=== PATIENT | male | born 1990 | race African-American/Black ===

== ENCOUNTER → 2023-04-30 08:50 | Outpatient (REF) | payer OTHER, SELFPAY | LOC: RAD 08:50 | PROVIDERS: ATTENDING PHYSICIAN Internal Medicine Gastroenterology; FAMILY PHYSICIAN Family Medicine | DX: D50.0 Iron deficiency anemia secondary to blood loss (chronic) (principal); K59.09 Other constipation | CPT/HCPCS: 74280 ==

== ENCOUNTER → 2023-08-11 09:50 | Outpatient (REF) | payer OTHER, SELFPAY | LOC: RAD 09:50 | PROVIDERS: ATTENDING PHYSICIAN Urology; FAMILY PHYSICIAN Family Medicine | DX: N39.42 Incontinence without sensory awareness (principal); E29.1 Testicular hypofunction | CPT/HCPCS: 76770; 76870; 93976 ==

== ENCOUNTER → 2023-09-01 13:38 | Outpatient (REF) | payer OTHER, SELFPAY | LOC: HWRAD 13:38 | PROVIDERS: ATTENDING PHYSICIAN Urology; FAMILY PHYSICIAN Family Medicine | DX: N20.0 Calculus of kidney (principal) | CPT/HCPCS: 74018; 74176 ==

== ENCOUNTER → 2024-03-31 10:27 | Outpatient (REF) | payer OTHER, SELFPAY | LOC: HWRAD 10:27 | PROVIDERS: ATTENDING PHYSICIAN Urology; FAMILY PHYSICIAN Family Medicine | DX: N20.0 Calculus of kidney (principal) | CPT/HCPCS: 74018 ==

== ENCOUNTER 2024-05-15 22:11 | Inpatient (IN) | payer OTHER, SELFPAY ==
[2024-05-15] VITALS (9 sets, daily range): BP systolic 118–136; BP diastolic 72–87; BMI 30.4; BMI 31.3
--- NOTE | 2024-05-15 18:04 | EDRN ---
this RN was unable to place PIV, this RN paged IV team
--- NOTE | 2024-05-15 18:35 | ED.GENMED ---
History of Present Illness
<Jyotsna Stroud PA-C - Last Filed: 05/16/24 00:20>
General
Chief Complaint: Flank Pain
Source: patient, family and ocular care aide
Exam Limitations: non verbal-adult
Time Seen by Provider: 05/15/24 18:05
Nursing documentation reviewed up to this point in time: agreed with
History of Present Illness
History of Present Illness:
Patient is a 33-year-old male with complicated medical history including epilepsy, cerebral palsy, GJ tube, kidney stones presenting to the emergency department with mom and caregiver for evaluation of right flank pain. Patient unable to contribute
much to history. Patient's mom stated patient started with right flank pain this morning around 10 AM. He has had multiple episodes of retching although no emesis. Mom denies any fever at home.
Patient does have history of kidney stones with recent lithotripsy on left side approximately 3 weeks ago. He did apparently passed for urethral stones a few days prior to visit in emergency department today. Patient follows with a urologist at
[facility] urology.
Patient will answer yes/no questions and points areas of pain.
Past History
<Jyotsna Stroud PA-C - Last Filed: 05/16/24 00:20>
Past History
ED Past Medical History: Other (Cerebral palsy, spasticity, migraines, epilepsy, quadriplegia, dysphasia, developmental delays, hematuria dysfunction,)
ED Past Surgical History: Cholecystectomy, Tonsilectomy and Other (mrcp, tendon lengthening,surgery for lazy eyes, PEG tube)
Social History
Tobacco: Non-smoker
Alcohol: None
Drug: None
Personal: Single
Living: with family
Employment: Disabled
Family History
Family History: Hypertension
Review of Systems
<Jyotsna Stroud PA-C - Last Filed: 05/16/24 00:20>
Review of Systems
Allergies reviewed?: Yes
All Other Systems: ROS reviewed and negative except as documented in HPI and ROS
Phy Exam
<Jyotsna Stroud PA-C - Last Filed: 05/16/24 00:20>
Physical Exam
Physical Exam:
Vitals: Patient's vital signs are stable. Afebrile
General: Patient is well appearing, no acute distress
Skin: Warm and dry, no rashes or lesions
Head: Normocephalic, atraumatic
Eyes: Sclera nonicteric. EOMs intact. No nystagmus.
Throat: Protecting airway
Neck: Normal ROM, no cervical spine tenderness, no meningismus
Cardiac: Regular rate and rhythm, no murmurs.
Pulm: Normal respiratory effort, no wheezes, rales, rhonchi heard on exam.
Abdomen: Abdomen soft. No reproducible abdominal tenderness.
Extremities: Bilateral upper extremities contracted. Palpable DP pulses bilaterally
Neuro: AAOx3. No gross deficits. Will answer yes/no and point to pain.
Psychiatric: Normal affect.
Course
<Jyotsna Stroud PA-C - Last Filed: 05/16/24 00:20>
Orders/Labs/Results
Orders:
Orders
05/15/24 Breakfast
Regular
At Your Request: Non-Participating
05/15/24 18:15
Straight cath- Treatment ONCE
Ketorolac [Toradol] 15 mg IM NOW STA
Ondansetron Orally Disint [Zofran Odt (Orally Disintegrating)] 4 mg PO NOW STA
05/15/24 18:18
Morphine Sulfate 2 mg IV NOW STA
05/15/24 18:30
Basic Metabolic Panel Urgent
Lipase Urgent
05/15/24 18:31
Complete Blood Count/With Diff Urgent
Ketorolac [Toradol] 15 mg IV NOW STA
Ondansetron Injectable [Zofran] 4 mg IV NOW STA
05/15/24 18:50
Urinalysis Reflex To Culture Urgent
Date Specimen was Collected: 05/15/24
Time Specimen was Collected: 18:31
Urine Microscopic Reflex Cult Urgent
Urine Culture Urgent
JESSI Source: U
Specimen Description:
Date Specimen was Collected: 05/15/24
Time Specimen was Collected: 18:31
05/15/24 19:08
0.9% Sodium Chloride 1000 ml [Nss] 1,000 ml IV BOLUS
05/15/24 19:16
CT Abd/pelvis W Iv Cont Urgent
Comment:
Reason For Exam: R flank pain
05/15/24 21:05
CefTRIAXone [Rocephin] 1,000 mg IV NOW STA
05/15/24 21:33
Admit/Transfer Patient As Directed
Co-Sign Provider:
Level of Care: Inpatient admission
Assign to:: Medical/Surgical
Physician / Group: ernestina
Diagnosis: UTI
Reason for Hospitalization: UTI
obstructing stone
Expected length of stay greater than two midnights?: Yes
ELOS- Estimated Length of Stay in days: 3
I certify the patient meets the requirements for IP care: Yes
PRN Pain Medication Management As Directed
May give lesser potent ordered pain med per pt: Yes
preference::
Protocol:: Medication orders for pain may be administered in a
manner that supports deferring to patient preference
when the pt is:
- Requesting an ordered lesser potent pain medication.
Least to most potent pain medications are defined
as: acetaminophen < NSAID < tramadol < opioids
(morphine, oxycodone, hydromorphone).
- Requesting a lesser dose of the same medication IF
ORDERED.
- Requesting a less intrusive route of administration
if both routes are prescribed by the provider (PO <
IV).
05/15/24 21:34
Code Status As Directed
Resuscitation Status: Full Code
05/15/24 22:00
Flush (0.9% Sodium Chloride) [Flush (Nss)] See Dose Instructions IV PER PROTOCOL
05/15/24 23:00
Clobazam (Non-Form) [Onfi] 40 mg PO HS
05/15/24 23:09
0.9% Sodium Chloride 1000 ml [Nss] 1,000 ml IV 125 mls/hr
Acetaminophen [Tylenol] 650 mg PO Q4HPRN PRN
Bisacodyl [Dulcolax] 10 mg RECTAL [id number] PRN
Docusate W/Senna [Senokot-S] 1 tablet PO BIDPRN PRN
HYDROmorphone [Dilaudid] 0.5 mg IV Q4HPRN PRN
Loratadine [Claritin] 10 mg PO HS
Montelukast Sodium [Singulair] 10 mg PO HS
Oxcarbazepine [Trileptal] 450 mg PO HS
Polyethylene Glycol Powder [Miralax] 17 grams PO DAILYPRN PRN
fluticasone propionate 1 spray NASAL BIDPRN PRN
05/15/24 23:09
Activity As Directed
Activity Level: As Tolerated
Pneumatic Compression Sleeves As Directed
Type: Knee high
Strain Urine As Directed
Vital Signs As Directed
Frequency: Per unit guidelines
Rx Incentive Spirometry [RESP] Routine
Frequency: q1h while awake
DX Deep Vein Thrombosis Video Routine
05/16/24 Breakfast
NPO
Allow oral meds: Yes
Allow clear liquids: No
NPO for procedure after (time): 05/16/2024 0000
Complete Blood Count/No Diff IN AM
CR Chest - 2 Views Routine
Comment:
Reason For Exam: sob
05/16/24 08:00
Cholecalciferol (Vitamin D3) [VITAMIN D3 (cholecalciferol)] 25 mcg PO DAILY
Docusate Sodium [Colace] 200 mg PO BID@0800,2200
Guaifenesin [Mucinex] 1,200 mg PO BID@0800,2199
Lubiprostone - Non-Form [Amitiza] 24 mcg PO BID@0800,1999
Oxcarbazepine [Trileptal] 300 mg PO DAILY
Pantoprazole [Protonix] 40 mg PO DAILY
ferrous sulfate See Dose Instructions PO BID
lamotrigine [Lamictal] See Dose Instructions PO BID
05/16/24 12:00
Phosphate Enema [Fleet Phosphate Enema-Adult] 135 ml RECTAL NOON
05/16/24 16:00
Lamotrigine [Lamictal] 150 mg PO DAILY@1600
Tamsulosin [Flomax] 0.4 mg PO DAILY@1600
05/16/24 22:00
CefTRIAXone [Rocephin] 1,000 mg IV Q24H
05/17/24 06:00
Complete Blood Count/No Diff IN AM
05/18/24 06:00
Complete Blood Count/No Diff IN AM
Abnormal Lab Results
05/15/24 05/15/24 05/15/24
18:30 18:31 18:50
WBC 12.9 H 10^3/uL
(4.8-10.8)
MCH 26.7 L pg
(27.0-31.0)
MCHC 32.3 L g/dL
(33.0-37.0)
RDW 15.3 H %
(11.5-14.5)
Abs Immat Gran (auto) 0.1 H 10^3/uL
(0-0.05)
Absolute Neuts (auto) 11.3 H 10^3/uL
(1.4-6.5)
Absolute Lymphs (auto) 1.0 L 10^3/uL
(1.2-3.4)
Neutrophils % 87.6 H %
(42.2-75.2)
Lymphocytes % 7.9 L %
(20.5-51.1)
Creatinine 0.6 L mg/dL
(0.7-1.3)
Glucose 107 H mg/dl
(70-99)
Ur Occult Blood Reflex 2+ A
(Negative)
Leukocyte Esterase Rfl 2+ A
(Negative)
Urine RBC 11-15 A /HPF
(0-2)
Urine WBC (Reflex) 60-70 A /HPF
(0-5)
Urine Bacteria (Reflex) Few A
(Negative)
Urine Albumin (Reflex) 1+ A
(Neg - Trace)
05/15/24 18:31
05/15/24 18:30
Vital Signs
Initial and Last Documented VS:
Initial Vital Signs
Pulse Resp Pulse Ox
85 19 97
05/15/24 17:55 05/15/24 17:55 05/15/24 17:55
Last Documented Vital Signs
Temp Pulse Resp BP Pulse Ox
97.8 F 84 14 136/82 96
05/15/24 23:28 05/15/24 23:28 05/15/24 23:00 05/15/24 23:28 05/15/24 23:28
<Mary Carmen Mabry MD - Last Filed: 05/15/24 20:53>
Orders/Labs/Results
Orders:
Orders
05/15/24 Breakfast
Regular
At Your Request: Non-Participating
05/15/24 18:15
Straight cath- Treatment ONCE
Ketorolac [Toradol] 15 mg IM NOW STA
Ondansetron Orally Disint [Zofran Odt (Orally Disintegrating)] 4 mg PO NOW STA
05/15/24 18:18
Morphine Sulfate 2 mg IV NOW STA
05/15/24 18:30
Basic Metabolic Panel Urgent
Lipase Urgent
05/15/24 18:31
Complete Blood Count/With Diff Urgent
Ketorolac [Toradol] 15 mg IV NOW STA
Ondansetron Injectable [Zofran] 4 mg IV NOW STA
05/15/24 18:50
Urinalysis Reflex To Culture Urgent
Date Specimen was Collected: 05/15/24
Time Specimen was Collected: 18:31
Urine Microscopic Reflex Cult Urgent
Urine Culture Urgent
JESSI Source: U
Specimen Description:
Date Specimen was Collected: 05/15/24
Time Specimen was Collected: 18:31
05/15/24 19:08
0.9% Sodium Chloride 1000 ml [Nss] 1,000 ml IV BOLUS
05/15/24 19:16
CT Abd/pelvis W Iv Cont Urgent
Comment:
Reason For Exam: R flank pain
05/15/24 21:05
CefTRIAXone [Rocephin] 1,000 mg IV NOW STA
05/15/24 21:33
Admit/Transfer Patient As Directed
Co-Sign Provider:
Level of Care: Inpatient admission
Assign to:: Medical/Surgical
Physician / Group: [email or web address]
Diagnosis: UTI
Reason for Hospitalization: UTI
obstructing stone
Expected length of stay greater than two midnights?: Yes
ELOS- Estimated Length of Stay in days: 3
I certify the patient meets the requirements for IP care: Yes
PRN Pain Medication Management As Directed
May give lesser potent ordered pain med per pt: Yes
preference::
Protocol:: Medication orders for pain may be administered in a
manner that supports deferring to patient preference
when the pt is:
- Requesting an ordered lesser potent pain medication.
Least to most potent pain medications are defined
as: acetaminophen < NSAID < tramadol < opioids
(morphine, oxycodone, hydromorphone).
- Requesting a lesser dose of the same medication IF
ORDERED.
- Requesting a less intrusive route of administration
if both routes are prescribed by the provider (PO <
IV).
05/15/24 21:34
Code Status As Directed
Resuscitation Status: Full Code
05/15/24 22:00
Flush (0.9% Sodium Chloride) [Flush (Nss)] See Dose Instructions IV PER PROTOCOL
05/15/24 23:00
Clobazam (Non-Form) [Onfi] 40 mg PO HS
05/15/24 23:09
0.9% Sodium Chloride 1000 ml [Nss] 1,000 ml IV 125 mls/hr
Acetaminophen [Tylenol] 650 mg PO Q4HPRN PRN
Bisacodyl [Dulcolax] 10 mg RECTAL [id number] PRN
Docusate W/Senna [Senokot-S] 1 tablet PO BIDPRN PRN
HYDROmorphone [Dilaudid] 0.5 mg IV Q4HPRN PRN
Loratadine [Claritin] 10 mg PO HS
Montelukast Sodium [Singulair] 10 mg PO HS
Oxcarbazepine [Trileptal] 450 mg PO HS
Polyethylene Glycol Powder [Miralax] 17 grams PO DAILYPRN PRN
fluticasone propionate 1 spray NASAL BIDPRN PRN
05/15/24 23:09
Activity As Directed
Activity Level: As Tolerated
Pneumatic Compression Sleeves As Directed
Type: Knee high
Strain Urine As Directed
Vital Signs As Directed
Frequency: Per unit guidelines
Rx Incentive Spirometry [RESP] Routine
Frequency: q1h while awake
DX Deep Vein Thrombosis Video Routine
05/16/24 Breakfast
NPO
Allow oral meds: Yes
Allow clear liquids: No
NPO for procedure after (time): 05/16/2024 0000
Complete Blood Count/No Diff IN AM
CR Chest - 2 Views Routine
Comment:
Reason For Exam: sob
05/16/24 08:00
Cholecalciferol (Vitamin D3) [VITAMIN D3 (cholecalciferol)] 25 mcg PO DAILY
Docusate Sodium [Colace] 200 mg PO BID@0800,2199
Guaifenesin [Mucinex] 1,200 mg PO BID@799,2199
Lubiprostone - Non-Form [Amitiza] 24 mcg PO BID@799,1999
Oxcarbazepine [Trileptal] 300 mg PO DAILY
Pantoprazole [Protonix] 40 mg PO DAILY
ferrous sulfate See Dose Instructions PO BID
lamotrigine [Lamictal] See Dose Instructions PO BID
05/16/24 12:00
Phosphate Enema [Fleet Phosphate Enema-Adult] 135 ml RECTAL NOON
05/16/24 16:00
Lamotrigine [Lamictal] 150 mg PO DAILY@1600
Tamsulosin [Flomax] 0.4 mg PO DAILY@1600
05/16/24 22:00
CefTRIAXone [Rocephin] 1,000 mg IV Q24H
05/17/24 06:00
Complete Blood Count/No Diff IN AM
05/18/24 06:00
Complete Blood Count/No Diff IN AM
Abnormal Lab Results
05/15/24 05/15/24 05/15/24
18:30 18:31 18:50
WBC 12.9 H 10^3/uL
(4.8-10.8)
MCH 26.7 L pg
(27.0-31.0)
MCHC 32.3 L g/dL
(33.0-37.0)
RDW 15.3 H %
(11.5-14.5)
Abs Immat Gran (auto) 0.1 H 10^3/uL
(0-0.05)
Absolute Neuts (auto) 11.3 H 10^3/uL
(1.4-6.5)
Absolute Lymphs (auto) 1.0 L 10^3/uL
(1.2-3.4)
Neutrophils % 87.6 H %
(42.2-75.2)
Lymphocytes % 7.9 L %
(20.5-51.1)
Creatinine 0.6 L mg/dL
(0.7-1.3)
Glucose 107 H mg/dl
(70-99)
Ur Occult Blood Reflex 2+ A
(Negative)
Leukocyte Esterase Rfl 2+ A
(Negative)
Urine RBC 11-15 A /HPF
(0-2)
Urine WBC (Reflex) 60-70 A /HPF
(0-5)
Urine Bacteria (Reflex) Few A
(Negative)
Urine Albumin (Reflex) 1+ A
(Neg - Trace)
05/15/24 18:31
05/15/24 18:30
Vital Signs
Initial and Last Documented VS:
Initial Vital Signs
Pulse Resp Pulse Ox
85 19 97
05/15/24 17:55 05/15/24 17:55 05/15/24 17:55
Last Documented Vital Signs
Temp Pulse Resp BP Pulse Ox
97.8 F 84 14 136/82 96
05/15/24 23:28 05/15/24 23:28 05/15/24 23:00 05/15/24 23:28 05/15/24 23:28
<Jyotsna Stroud PA-C - Last Filed: 05/16/24 00:20>
MDM/Problems Addressed
Differential Diagnosis Includes:
Not limited to: Ureterolithiasis, pyelonephritis, UTI, appendicitis, constipation, bowel obstruction, etc.
MDM/Problems Addressed:
33-year-old male with medical history as documented presenting with right flank pain onset this morning associate with episodes of retching. Patient with known history kidney stones and recent left-sided lithotripsy a few weeks ago�follows with
[facility] urology. Vitals stable, afebrile. Physical exam as above. History somewhat limited due to patient's speech difficulty developmental delay. Will obtain basic labs, urinalysis and plan for CT imaging of abdomen/pelvis. Will treat
pain and give IV fluids.
Update: Labs reviewed. Mild leukocytosis of 12.9. Chemistry unremarkable with no evidence of renal insufficiency. CT pending. On reassessment�patient states pain has improved.
Update 7:40PM : Upon return to ED room following CT scan�I was made aware of seizure the patient had during CT scan which self terminated. Patient appears at his baseline, not postictal on my reevaluation at bedside. On discussion with daniel
patient has not had his scheduled dose of Lamictal at 4 PM. She does however note that he experienced seizures frequently, if not daily which typically self terminate. It is possible that underlying infection may have contributed to lower seizure
threshold, as well. Will give scheduled dose of Lamictal pending CT report.
Update 8:35PM: CT report shows obstructing proximal right sided ureteral stone. Urine appears infected. Concern for possible infected obstructing stone given UA findings along with mild leukocytosis. Patient is hemodynamically stable, not
hypotensive, not septic. Will consult urology immediately.
Chronic conditions affecting care:
Epilepsy, history of kidney stones,
Acute Exacerbation and/or Progression of Chronic Illness:
Acute right obstructing kidney stone
<Jyotsna Stroud PA-C - Last Filed: 05/16/24 00:20>
*Radiology
Radiology exam reviewed: radiology read reviewed
*Pulse Oximetry
Patient hypoxic: yes (Placed on 2 L nasal cannula)
*EKG
Interpreted by ED Provider?: NA
*Civil Project Engineer Interpretation
Rate: normal
Interpretation: normal
Heart Rate: 82
Rhythm: sinus
*Critical Care Note
Total Time (30-74mins, 75-104mins- exclusive of procedures): Not Applicable
<Jyotsna Stroud PA-C - Last Filed: 05/16/24 00:20>
Patient Management
Discussion with other providers: Laundry Route Driver (Case was discussed with urology)
Escalation/DeEscalation of care consider admission/obs:
Admit for IV antibiotics, further monitoring, possible OR placement tomorrow
<Jyotsna Stroud PA-C - Last Filed: 05/16/24 00:20>
Update Note
Update Note:
Update 9:01 PM: Case discussed with urology on-call, Dr. Vivar who states 'I would not consider that concerning for acutely infected stone. Probably has lots of WBCs from recent procedure and passing stone fragments. At least half of patients with
obstructing stone of any kind have a mild leukocytosis.
Would generally be okay sending patient like this home however looks like he has a lot of developmental issues and may not be a good candidate for trial of passage.
Would be appropriate to admit to medicine, start antibiotic, keep NPO for stent placement tomorrow
Alternatively he could start a PO antibiotic and call his urologist in the morning'
I personally do not feel patient is a good candidate for trial of passage of stone outpatient given complicated medical history and concern for potentially underlying infectious process, as well. Reviewed patient's drug allergy list�no penicillin
allergy listed and patient has tolerated cefazolin well in past. Will give IV Rocephin in emergency department. Patient remains hemodynamically stable and comfortable with no repeat seizure activity. Will admit patient to hospitalist service for
IV antibiotics, further management. Possible stent tomorrow with urology. Patient accepted to hospital service in stable condition. Discussed with family who are agreeable and comfortable with plan
ED Attending Note
<Jyotnsa Stroud PA-C - Last Filed: 05/16/24 00:20>
-
Portions of this chart may have been created with voice recognition software.� Occasional wrong word or��sound alike� substitutions may have occurred due to the inherent limitations of voice recognition software.
<Mary Carmen Mabry MD - Last Filed: 05/15/24 20:53>
ED Attending Note
Patient seen and examined by attending physician: Yes
I performed the substantive portion of visit, reviewed & personally made and approve the management plan that is documented in note by myself or MARVEL.: Yes
ED Attending Note:
33-year-old male with recent lithotripsy on the left side given history of kidney stones presents emergency department with reported pain at the right flank area that started late this afternoon/early evening. Patient now resting comfortably.
However, workup very suggestive of infected stone. Blood pressure stable not septic however leukocytosis with UA suggestive of infection associated with an obstructing stone. Parents updated. Will start antibiotics after reviewing allergies and
consult urology [facility].
Discharge Plan
Departure
Patient Disposition: Admit
Date of Disposition: 05/15/24
Time of Disposition: 21:06
Presentation/result/management discussed w/ accepting MD/DO: Hospitalist
Discharge Problem:
Urinary tract obstruction due to kidney stone
Interventions
Interventions:
*Risk Screen - Suicide Last Done: 05/15/24 18:04
*General Assessment Last Done: 05/15/24 18:04
*Neglect/Abuse Screening Last Done: 05/15/24 18:04
*ED- Fall Risk Assessment Last Done: 05/15/24 18:04
*ED COVID-19 Vaccine History Last Done: 05/15/24 18:04
*Nursing Disposition Last Done: 05/15/24 23:14
NR-Vgwfea-Pxicenpxpj Assessment Last Done: 05/15/24 18:04
ED-Male Genitourinary Assessment Last Done: 05/15/24 18:04
Discharge Date and Time
Discharge Date/Time: 05/15/24 23:15
[2024-05-15] MEDS: TORADOL 15 MG IV (18:37)
[2024-05-15] MEDS: MORPHINE SULFATE 2 MG IV (18:37)
[2024-05-15] MEDS: ZOFRAN 4 MG IV (18:37)
[2024-05-15 18:46] LABS: % Basophils 0.4 % (0-2); % Immature Granulocytes 0.4 % (0-0.5); % Lymphocytes 7.9 % (20.5-51.1); % Monocytes 3.7 % (1.7-9.3); % Neutrophils 87.6 % (42.2-75.2); Absolute Basophils 0.1 10^3/uL (0-0.2); Absolute Immature Granulocytes 0.1 10^3/uL (0-0.05); Absolute Monocytes 0.5 10^3/uL (0.1-0.6); Absolute Neutrophils 11.3 10^3/uL (1.4-6.5); Hematocrit 47.1 % (39.0-52.0); Hemoglobin 15.2 g/dL (13.0-18.0); Mean Corp Hgb Conc. 32.3 g/dL (33.0-37.0); Mean Corpuscular Hgb 26.7 pg (27.0-31.0); Mean Corpuscular Volume 82.6 fL (80.0-94.0); Mean Platelet Volume 9.1 fL (7.4-10.4); Nucleated Red Blood Cells % 0 % (-); Platelet Count 251 10^3/uL (130-400); Red Cell Dist. Width 15.3 % (11.5-14.5); White Blood Cell Count 12.9 10^3/uL (4.8-10.8)
[2024-05-15 18:57] LABS: Urine Albumin 1+ (Neg - Trace); Urine Bilirubin Negative (Negative); Urine Character Clear (Clear); Urine Color Yellow; Urine Glucose Negative (Negative); Urine Ketone Negative (Negative); Urine Leukocyte 2+ (Negative); Urine Nitrite Negative (Negative); Urine Occult Blood 2+ (Negative); Urine Urobilinogen 1+ (Neg - 1+)
[2024-05-15 18:57] LABS: Blood Urea Nitrogen 13 mg/dl (9-20); Calcium 9.2 mg/dl (8.4-10.2); Carbon Dioxide 23 mmol/L (22-30); Chloride 105 mmol/L (98-107); Estimated Creatinine Clearance > 125 ml/min; Glucose 107 mg/dl (70-99); Lipase 138 U/L (23-300); Sodium 137 mmol/L (135-145); eGFR > 60.00
[2024-05-15 19:08] LABS: Urine Mucus Few; Urine Squamous Cell 0-2 /LPF (Few)
[2024-05-15] MEDS: NSS 1000 IV (19:08)
[2024-05-15 19:09] LABS: Urine Bacteria Few (Negative); Urine White Cell 60-70 /HPF (0-5)
--- NOTE | 2024-05-15 19:16 | EDRN ---
the pt started to desat to 90%, this RN spoke to the pt and the pts mother and the pts mother was agreeable to allowing this RN place the pt on 2L NC, Sp02 came up to 94%
--- NOTE | 2024-05-15 21:13 | HPS.HSE ---
Family Physician
-
Family Physician: Jesica Solano
Chief Complaint
-
right flank pain
History of Present Illness
33-year-old male with complicated medical history including cerebral palsy, GJ tube, kidney stones presenting to the emergency department with mom and caregiver for evaluation of right flank pain. Patient unable to contribute much to history.
Patient's mom stated patient started with right flank pain this morning around 10 AM. He has had multiple episodes of retching although no emesis. His abdomen is distended as per mom. Mom denies any fever at home. patient was not complaining of
any chest pain, sob. as per mom very little urine output today. denied any blood in the urine. Patient does have history of kidney stones with recent lithotripsy on left side approximately 3 weeks ago.
Patient is requiring 2 L of oxygen. As per mom he usually runs low oxygen when he is sick. At present he is -95 on [address] with Obstructing calculus in the proximal right ureter, at the L3 level.Bilateral nephrolithiasis. 2 mm calculus within the left posterior bladder.
Patient received a dose of ceftriaxone, Toradol, morphine, normal saline, Zofran in ER. Admitting for further management
Medical History
Past Medical History
Past Medical History: Reports Other
Additional Past Medical History:
Constipation
Sent several months
Seizure
Cerebral palsy
Chronic migraine headaches
Chronic pancreatitis
quadriplegia
Past Surgical History: Reports Other
Additional Past Surgical History:
Spinal surgery
Tendon lengthening
Cholecystectomy
Tonsillectomy
GJ tube
Social History
Tobacco: Non-smoker
Alcohol: None
Drug: None
Living: With Family
Family History
Family History: Not pertinent
Allergies / Home Medications
Allergies reflects when Allergies were last updated in [employer].
Home Medications with original date entered in [employer]
Allergy/Medication List:
Allergies
Allergy/AdvReac Type Severity Reaction Status Date / Time
baclofen Allergy Anaphylaxis Verified 09/20/21 17:28
clarithromycin Allergy Unknown Verified 09/20/21 17:28
divalproex sodium Allergy Unknown Verified 09/20/21 17:28
erythromycin base Allergy Unknown Verified 09/20/21 17:28
fluconazole [Fluconazole] Allergy Unknown Verified 09/20/21 17:28
grass pollen-[place], Allergy Unknown Verified 09/20/21 17:28
standard
[Grass Pollen-[place],
Standard]
haloperidol Allergy Unknown Verified 09/20/21 17:28
lactose Allergy Unknown Verified 09/20/21 17:28
latex [Latex] Allergy Anaphylaxis Verified 09/20/21 17:28
levetiracetam Allergy Unknown Verified 09/20/21 17:28
levofloxacin Allergy Unknown Verified 09/20/21 17:28
lorazepam [From Ativan] Allergy Unknown Verified 09/20/21 17:28
Penicillins Allergy Unknown Verified 09/20/21 17:28
phenytoin sodium Allergy gums swell Verified 09/20/21 17:28
[From Dilantin]
piperacillin Allergy Unknown Verified 09/20/21 17:28
tazobactam Allergy Unknown Verified 09/20/21 17:28
POLLEN Allergy Unknown Uncoded 09/20/21 17:28
Home Medications
fluticasone propionate 50 mcg/actuation nasal spray,suspension 1 spray intranasal BIDPRN PRN allergies 11/26/14
loratadine 10 mg tablet 10 mg PO HS 11/26/14
polyethylene glycol 3350 17 gram oral powder packet 17 grams PO DAILYPRN PRN constipation 11/26/14
lubiprostone 24 mcg capsule 24 mcg PO BID 10/04/18
montelukast 10 mg tablet 10 mg PO HS 10/04/18
sodium phosphates 19 gram-7 gram/118 mL enema (Enema) 135 ml NM NOON 10/04/18
cholecalciferol (vitamin D3) 25 mcg (1,000 unit) tablet (Vitamin D3) 25 mcg PO DAILY 05/15/24
clindamycin phosphate 1 % topical gel 1 applic topical DAILYPRN PRN pimples 05/15/24
clobazam 20 mg tablet 40 mg PO HS 05/15/24
docusate sodium 100 mg capsule 200 mg PO BID 05/15/24
ferrous sulfate 137 mg (45 mg iron) tablet,extended release 137 mg PO BID 05/15/24
guaifenesin 1,200 mg tablet, extended release 12 hr 1,200 mg PO BID 05/15/24
ketotifen fumarate 0.025 % (0.035 %) eye drops 1 drp BOTH EYES Q8HPRN PRN eye irritation 05/15/24
lamotrigine 150 mg tablet (Lamictal) 150 mg PO DAILY@1600 05/15/24
lamotrigine 200 mg tablet (Lamictal) 200 mg PO BID 05/15/24
metoclopramide HCl 10 mg tablet 10 mg PO TID 05/15/24
omega 6-rrc-mnj-fish oil 1,000 mg (120 mg-180 mg) capsule (Fish Oil) 1 cap PO BID 05/15/24
omeprazole 40 mg capsule,delayed release 40 mg PO DAILY 05/15/24
oxcarbazepine 300 mg tablet 300 mg PO DAILY 05/15/24
oxcarbazepine 300 mg tablet 450 mg PO HS 05/15/24
tamsulosin 0.4 mg capsule 0.4 mg PO DAILY@1600 05/15/24
therapeutic multivitamin 1 tab PO DAILY 05/15/24
Review of Systems
-
Constitutional: Reports No Symptoms
EENT: Reports No Symptoms
Respiratory: Reports No Symptoms
Cardiac: Reports No Symptoms
Abdomen/GI: Reports Abdominal Pain and Nausea
: Reports Flank Pain
Musculoskeletal: Reports No Symptoms
Skin: Reports No Symptoms
Neurological: Reports No Symptoms
Endocrine: Reports No Symptoms
Hematologic/Lymphatic: Reports No Symptoms
Psych: Reports No Symptoms
Physical Exam
Vital Signs
Vital Signs
Temp Pulse Resp BP Pulse Ox
99.0 F 85 19 123/80 94
05/15/24 18:04 05/15/24 19:06 05/15/24 19:06 05/15/24 19:06 05/15/24 19:06
Physical Exam
General: Well Developed, Well Nourished and No Apparent Distress
HEENT: NormoCephalic, Moist mucous membranes and Atraumatic
Respiratory: Clear
Cardiac: S1/S2 and Regular Rhythm; No Murmur or Rub
GI: Soft, Non Tender, Non Distended, Normal Bowel Sounds and Other (GJ tube); No Organomegaly
Rectal: Deferred by Provider
Musculoskeletal: No Clubbing, No Cyanosis and No Edema
Skin: No Rash
Neuro: AO x 3 and Nonfocal/grossly intact
Psych: Calm
Laboratory Results
-
05/15/24 18:31
05/15/24 18:30
Laboratory Results
Total Bilirubin Cancelled 05/15/24 18:30
AST Cancelled 05/15/24 18:30
ALT Cancelled 05/15/24 18:30
Alkaline Phosphatase Cancelled 05/15/24 18:30
Lipase 138 U/L (23-300) 05/15/24 18:30
Data Reviewed
-
CT Scan: Report Reviewed by me
Lab Data: Labs Reviewed by me
Impression/Plan
-
# Obstructing stone proximal right ureter with concern for associated UTI
-WBCs 12.9
-Urine culture sent from ER
-Keep patient n.p.o after midnight
-Plan for stent tomorrow
-Continue IV ceftriaxone
-Tylenol as needed for fever pain
-Flomax continued
-strain urine
-Urology consulted
-CT abdomen pelvis with impression of Obstructing calculus in the proximal right ureter, at the L3 level.Bilateral nephrolithiasis. 2 mm calculus within the left posterior bladder.
#acute hypoxia unclear cause
-obtain chest x ray
-continue supplemental oxygen to keep sat >95
-wean as tolerated
-encourage incentive spirometry
# History of cerebral palsy and developmental delay
# History of seizure.
-Clobazam, Lamictal continued continued
-Oxcarbazepine continued
# Iron deficiency anemia
-Ferrous sulfate continued
# Constipation. Patient
-Colace continued, enema continued
-MiraLAX continued
# Asthma. No signs of decompensation.
-Singular continued
#GJ tube
-gets fluids through J tube at hs
# GERD
-PPI continued
#DVT prophylaxis
-SCDs
# CODE STATUS
-Full code
[2024-05-15] MEDS: ROCEPHIN 1000 MG IV (21:45)
--- NOTE | 2024-05-15 21:45 | W.PN.UPDATE ---
Update Note
Progress Note Update
Patient seen in conjunction with JOSE ANGEL. I agree with the findings and physical. I concur with assessment and plan.
This is a 33-year-old with history of cerebral palsy, prior neck injury who is status post PEG and currently is able to tolerate regular diet, history of seizure disorder, nephrolithiasis presenting to the emergency department with right-sided flank
pain. Patient has a history of nephrolithiasis and was found to have bilateral nephrolithiasis about 3 weeks ago. He had a lithotripsy for left-sided kidney stones. There was a planned follow-up on the right pending however patient developed
flank pain prior to that. He has been passing stones at home since his lithotripsy. Denies fevers but states that the usual temperature is around 96 and is currently around 99. Denies any recent seizures. Denies cough. Found to be hypoxic in
the ED but family denies any shortness of breath and states that they have been getting some oxygen requirement with intercurrent illness.
In the emergency department blood pressure was 125/80 with a pulse of 83 satting 94% on 2 L. He had a white count of 12 hemoglobin and platelets were normal. Electrolytes were stable and his BUN and creatinine were normal. CT of the abdomen
pelvis without contrast shows a 6 mm obstructing right proximal ureteral stone with mild hydronephrosis. UA was positive for leukocyte esterase with few bacteria and WBCs.
Urolithiasis -obstructing right proximal 6 mm stone. Low-grade temps with the patient. Peripheral leukocytosis and pyuria with few bacteriuria concerning for possibly infected stone. Patient with some mild nausea but otherwise hemodynamically
stable
- admit to med/surg
- NPO at breakfast
- urine culture
- start empiric ceftriaxone
- iv fluids, continue tamsulosin
- strain urine
- urology aware and consulted, procedure tomorrow likely
Hypoxia - Mild hypoxia. No acute respiratory symptoms. Suspect atelectasis
- check chest xray
- incentive spirometry
- nebs
- pain control
Cerebral Palsy - Bed bound, s/p PEG. Tolerates po normally
- continue his usual AEDs,
- continue ppi and bowel regimen
DVT PPX - SCD pending urologycial procedure
Code status - Full Code
--- NOTE | 2024-05-15 21:57 | CONS.URO ---
Consultation
-
Date/Time Consultation Performed: 05/16 at 0800
Performing Provider: Peffer
Reason for Consultation: Kidney stone
Medical History
History of Present Illness
33M with complicated medical history including cerebral palsy, GJ tube, kidney stones presenting to the emergency department with mom and caregiver for evaluation of right flank pain.
Patient unable to contribute to history.
Patient does have history of kidney stones with recent lithotripsy on left side approximately 3 weeks ago with [facility]
He has been passing some stone fragments at home
Right flank pain starting Wednesday morning around 10 AM. Mom denies any fever at home. Patient was not complaining of any chest pain, sob.
Mother notes very little urine output through the day. Denied hematuria and dysuria
CT obtained showing obstructing calculus in the proximal right ureter. Bilateral nephrolithiasis with calcific debris in renal pelvis and proximal ureter. 2 mm calculus within the left posterior bladder.
Mild leukocytosis and WBCs/LE on urinalysis with few bacteria, nit negative
Afebrile and stable vitals in ER
He was admitted to medicine given he is a poor candidate for trial of passage and suspicion of possible UTI
Past Medical History
Past Medical History: Other (as above)
Past Surgical History: Urological
Social History
Tobacco: Non-smoker
Alcohol: None
Drug: None
Living: With Family
Family History
Family History: Reviewed & Not Pertinent
Allergies/Home Medications
Allergies
Allergy/AdvReac Type Severity Reaction Status Date / Time
baclofen Allergy Anaphylaxis Verified 09/20/21 17:28
clarithromycin Allergy Unknown Verified 09/20/21 17:28
divalproex sodium Allergy Unknown Verified 09/20/21 17:28
erythromycin base Allergy Unknown Verified 09/20/21 17:28
fluconazole [Fluconazole] Allergy Unknown Verified 09/20/21 17:28
grass pollen-[place], Allergy Unknown Verified 09/20/21 17:28
standard
[Grass Pollen-[place],
Standard]
haloperidol Allergy Unknown Verified 09/20/21 17:28
lactose Allergy Unknown Verified 09/20/21 17:28
latex [Latex] Allergy Anaphylaxis Verified 09/20/21 17:28
levetiracetam Allergy Unknown Verified 09/20/21 17:28
levofloxacin Allergy Unknown Verified 09/20/21 17:28
lorazepam [From Ativan] Allergy Unknown Verified 09/20/21 17:28
Penicillins Allergy Unknown Verified 09/20/21 17:28
phenytoin sodium Allergy gums swell Verified 09/20/21 17:28
[From Dilantin]
piperacillin Allergy Unknown Verified 09/20/21 17:28
tazobactam Allergy Unknown Verified 09/20/21 17:28
POLLEN Allergy Unknown Uncoded 09/20/21 17:28
Home Medications
�Medication �Instructions �Recorded �Confirmed �Type
fluticasone propionate 50 1 spray intranasal BIDPRN PRN 11/26/14 05/15/24 History
mcg/actuation nasal allergies
spray,suspension
loratadine 10 mg tablet 10 mg PO HS 11/26/14 05/15/24 History
polyethylene glycol 3350 17 gram 17 grams PO DAILYPRN PRN 11/26/14 05/15/24 History
oral powder packet constipation
lubiprostone 24 mcg capsule 24 mcg PO BID 10/04/18 05/15/24 History
montelukast 10 mg tablet 10 mg PO HS 10/04/18 05/15/24 History
sodium phosphates 19 gram-7 135 ml GA NOON 10/04/18 05/15/24 History
gram/118 mL enema (Enema)
cholecalciferol (vitamin D3) 25 25 mcg PO DAILY 05/15/24 05/15/24 History
mcg (1,000 unit) tablet (Vitamin
D3)
clindamycin phosphate 1 % topical 1 applic topical DAILYPRN PRN 05/15/24 05/15/24 History
gel pimples
clobazam 20 mg tablet 40 mg PO HS 05/15/24 05/15/24 History
docusate sodium 100 mg capsule 200 mg PO BID 05/15/24 05/15/24 History
ferrous sulfate 137 mg (45 mg 137 mg PO BID 05/15/24 05/15/24 History
iron) tablet,extended release
guaifenesin 1,200 mg tablet, 1,200 mg PO BID 05/15/24 05/15/24 History
extended release 12 hr
ketotifen fumarate 0.025 % (0.035 1 drp BOTH EYES Q8HPRN PRN eye 05/15/24 05/15/24 History
%) eye drops irritation
lamotrigine 150 mg tablet 150 mg PO DAILY@1600 05/15/24 05/15/24 History
(Lamictal)
lamotrigine 200 mg tablet 200 mg PO BID 05/15/24 05/15/24 History
(Lamictal)
metoclopramide HCl 10 mg tablet 10 mg PO TID 05/15/24 05/15/24 History
omega 5-ddm-awo-fish oil 1,000 mg 1 cap PO BID 05/15/24 05/15/24 History
(120 mg-180 mg) capsule (Fish Oil)
omeprazole 40 mg capsule,delayed 40 mg PO DAILY 05/15/24 05/15/24 History
release
oxcarbazepine 300 mg tablet 300 mg PO DAILY 05/15/24 05/15/24 History
oxcarbazepine 300 mg tablet 450 mg PO HS 05/15/24 05/15/24 History
tamsulosin 0.4 mg capsule 0.4 mg PO DAILY@1600 05/15/24 05/15/24 History
therapeutic multivitamin 1 tab PO DAILY 05/15/24 05/15/24 History
Physical Exam
Vital Signs
Vital Signs
Temp Pulse Resp BP Pulse Ox
99.0 F 85 19 123/80 94
05/15/24 18:04 05/15/24 19:06 05/15/24 19:06 05/15/24 19:06 05/15/24 19:06
Lab / Testing Results
Laboratory Results
05/15/24 18:31
05/15/24 18:30
Physical Exam
General: Well Nourished and No Apparent Distress
Respiratory: Clear and Non Labored Respirations
GI: Non Tender
Genito-urinary: No Costovertebral Tend
Neuro: Awake and Alert
Psych: Calm and Intact Judgement
Assessment / Plan
-
33M with complex medical history, developmental delays
Recent ESWL for L renal stone approx 3 weeks ago at [facility]
Presenting with R flank pain from obstructing 6x4mm prox ureteral stone
Stone debris in L kidney and calcific debris vs early contrast excretion in L proximal ureter without hydronephrosis
Leukocytosis and pyuria without sepsis
- Recent ESWL was done for preventive treatment of larger nonobstructing L renal stone. Given that this stone still remains 7mm, he will need eventual bilateral ureteroscopy to accomplish the original goal of clearing kidneys of stones that could
cause obstruction. For this reason I recommend bilateral stent placement to facilitate later ureteroscopy
- NPO
- OR today for cystoscopy, bilateral ureteral stent
Likely will be stable for discharge today post op
Continue 7 day course of PO antibiotics for possible UTI
Outpatient follow up with his urologist Dr. Montana for final stone management
Data Reviewed
-
CT Scan: Image personally visualized and interpreted
Lab Data: Labs Reviewed
[2024-05-16] VITALS (16 sets, daily range): BP systolic 93–143; BP diastolic 50–98; BMI 31.5
[2024-05-16] MEDS: NSS 1000 IV ×3 (00:20→21:39)
[2024-05-16] MEDS: ONFI 40 MG PO ×2 (00:20→21:37)
[2024-05-16] MEDS: CLARITIN 10 MG PO ×2 (00:21→21:36)
[2024-05-16] MEDS: SINGULAIR 10 MG PO ×2 (00:22→21:38)
[2024-05-16] MEDS: TRILEPTAL 450 MG PO ×2 (00:22→21:39)
--- NOTE | 2024-05-16 05:34 | PTCARENOTE ---
Pt admitted from ED to 2139, quadriplegic, aaox3, able to make needs known, slow garbled speech per baseline. Pt's mom at bedside, med list verified again with mom and medications sent to pharmacy for storage.
[2024-05-16 07:33] LABS: Hematocrit 43.1 % (39.0-52.0); Hemoglobin 13.8 g/dL (13.0-18.0); Mean Corpuscular Volume 84.3 fL (80.0-94.0); Mean Platelet Volume 9.2 fL (7.4-10.4); Platelet Count 238 10^3/uL (130-400); Red Blood Cell Count 5.11 10^6/uL (4.70-6.10); Red Cell Dist. Width 15.3 % (11.5-14.5); White Blood Cell Count 8.6 10^3/uL (4.8-10.8)
[2024-05-16] MEDS: MUCINEX 1200 MG PO ×2 (07:47→21:36)
[2024-05-16] MEDS: VITAMIN D3 (cholecalciferol) 25 MCG PO (07:47)
[2024-05-16] MEDS: TRILEPTAL 300 MG PO (07:47)
[2024-05-16] MEDS: COLACE 200 MG PO ×2 (07:47→21:36)
[2024-05-16] MEDS: NON-FORMULARY ITEM 1 CAP PO ×2 (07:47→21:32)
[2024-05-16] MEDS: REGLAN 10 MG PO ×3 (07:47→21:37)
[2024-05-16] MEDS: AMITIZA 24 MCG PO ×2 (07:47→21:36)
[2024-05-16] MEDS: NON-FORMULARY ITEM 137 MG PO ×2 (07:48→21:31)
[2024-05-16] MEDS: NON-FORMULARY ITEM 200 MG PO ×2 (07:48→21:32)
[2024-05-16] MEDS: NON-FORMULARY ITEM 1 UNIT PO ×2 (07:48→16:34)
[2024-05-16 08:24] LABS: ALT (SGPT) 26 U/L (0-50); AST (SGOT) 20 U/L (17-59); Albumin 3.5 g/dl (3.5-5.0); Alkaline Phosphatase 69 U/L (38-126); Blood Urea Nitrogen 12 mg/dl (9-20); Calcium 8.7 mg/dl (8.4-10.2); Carbon Dioxide 25 mmol/L (22-30); Chloride 107 mmol/L (98-107); Estimated Creatinine Clearance > 125 ml/min; Glucose 84 mg/dl (70-99); Potassium 3.9 mmol/L (3.5-5.1); Sodium 139 mmol/L (135-145); Total Bilirubin 0.4 mg/dl (0.2-1.3); Total Protein 6.1 g/dl (6.3-8.2); eGFR > 60.00
--- NOTE | 2024-05-16 09:52 | W.PN.UPDATE ---
Update Note
Progress Note Update
Patient noted to have urinary retention overnight requiring straight cath
Unknown if he has emptying issues at baseline
Continue straight cath PRN for now
Give dose of tamsulosin early
Trend PVR/bladder scan
[2024-05-16] MEDS: FLOMAX 0.4 MG PO ×2 (10:13→16:33)
--- NOTE | 2024-05-16 11:14 | PTCARENOTE ---
Patient to OR, chart with transport team. IVF capped, CHG bath and fresh gown provided by tech prior to transport. Patient with mod loose BM on cavidian when turned, mom at bedside made aware and stated to hold scheduled noon enema at this time.
Patient bladder scanned for 207ml prior to transport, OR nurse Alma Delia stated bladder will be drained while in OR. Patient transported in bed.
--- NOTE | 2024-05-16 13:21 | W.PN.HOSP.TC ---
Today's Communication/Plan
-
-Continue straight cath PRN for now
-Trend PVR/bladder scan
-Follow urine culture
Assessment / Plan
Assessment / Plan
The patient is a 33-year-old male with a past medical history of cerebral palsy, GJ tube, multiple kidney stones who was brought to the ER department by his mother due to concern of right flank pain. Patient does not have capacity to answer the
questions. His mother reported that he had right flank pain pointing the area and having some chills. At the ER, the patient's CT reported obstructing calculus in the proximal right ureter, at the L3 level and bilateral nephrolithiasis with mild
hydronephrosis and 2 mm calculus within the left posterior bladder. His urine result found complaint with UTI and his WBC was found elevated to 12.9. The patient also had a small amount of urine output and required catheter to remove urine after
admission.
Off note, The patient had lithotripsy on the left kidney about 3 weeks ago and mother reports capturing 4 pieces of stone pieces in the urine.
#Right proximal ureteral stone with mild hydronephrosis and possible UTI infection
-Was seen by urology/planning to place stent today or tomorrow
-Continue straight cath as needed for now-
-Trend PVR/bladder scan by urology recc
-Continue IV fluids
-Continue tamsulosin
# Leukocytosis secondary to UTI
-Resolved
-Continue ceftriaxone
-Urine culture pending
# Chronic hypoxia
-Patient has been on supplemental oxygen he has medical deconditioning
-History of asthma
-Inhalers as needed
-Pain management
-Chest x-ray: Unremarkable
-
# Cerebral palsy complicated with seizures
-Baseline bedbound
-Continue his usual antiseizure medication (Clobazam, Lamictal, Oxcarbazepine)
-
# Chronic anemia
-Continue ferrous sulfate
# GJ tube
-Continue giving fluids and meds through tube
# Constipation
-Continue Colace and enema and MiraLAX
#DVT prophylaxis
-SCDs
# CODE STATUS
-Full code
Anticipated Discharge: 24 - 48 hours
Subjective/Interval History
-
Date of Service: May 16, 2024
The patient was seen this morning with his mother. He is not much verbal with underlying cerebral palsy. He pointed his right side when I ask about his pain.
Objective Data
-
Labs:
Laboratory Results
05/16/24 05/16/24
06:40 06:41
WBC 8.6
Hgb 13.8
Hct 43.1
Plt Count 238
Sodium 139
Potassium 3.9
Chloride 107
Carbon Dioxide 25
BUN 12
Creatinine 0.6 L
Glucose 84
Calcium 8.7
Total Bilirubin 0.4
AST 20
ALT 26
Alkaline Phosphatase 69
Vital Signs:
Vital Signs
Temp Pulse Resp BP Pulse Ox
98.4 F 100 17 134/93 93
05/16/24 08:10 05/16/24 08:10 05/16/24 08:10 05/16/24 08:10 05/16/24 11:19
I&O
05/15/24 05/16/24 05/17/24
06:59 06:59 06:59
Output Total 700 / 700
Balance -700 / -700
Physical Exam
-
General: Well Developed, Well Nourished and Pain
HEENT: Normocephalic and Atraumatic
Respiratory: Clear to Auscultation
Cardiac: Regular Rhythm and S1/S2
GI: Soft, Nontender, Nondistended and Other (GJ tube seems on the place)
Genito-urinary: Costovertebral Angle Tend (On the right side)
Musculoskeletal: No Clubbing, No Cyanosis and Other (bedridden-only moves upper extremities)
Skin: Warm
Neuro: Awake, Alert and Other (see HPI )
--- NOTE | 2024-05-16 13:29 | W.IMMPOSTOP ---
Surgical Immed Post Op Note
-
Primary Surgeon:
jhonny
Assisting Surgeon:
Pre-op Diagnosis:
bilateral hydro due to stone/UTI
Post-op Diagnosis:
same
Procedure Performed:
cysto/bilateral retrogrades/left ureteral stent/right ureteral stone manipulation and stent placement
Anesthesia Type:
gen
Specimen / Cultures:
none
Estimated Blood Loss:
1cc
Complications:
none
Operative Findings:
discussed OR plan with mother pre-op- consent confirmed
nl bladder with some stone debris
minimal left hydro- stent placed
sigj right hydro with impacted stone- stent placed with return of cloudy urine
to pacu in stable condition
[2024-05-16] MEDS: NSS IV (15:02)
--- NOTE | 2024-05-16 15:03 | SUR.PHASEI ---
woke up and airway out, no pain, voided blood tinged urine in urinal and incontinent. skin care and linen change. Attempted to reach mom - she returned to patient room. updated on transfer
--- NOTE | 2024-05-16 15:08 | PTCARENOTE ---
Received patient from PACU s/p ureteral stent placement. VSS, patient turned and repositioned in bed, IVF infusing through R hand IV. Regular diet ordered per urology. SCDs in place.
--- NOTE | 2024-05-16 15:59 | CM ---
Reviewed the chart notes and spoke with the patient and his mother at the bedside. The patient resides with his mother at [facility] in a one bedroom apartment with elevator access. The patient has a power wheelchair, special shower chair,
electric jojo, and a hospital bed. The patient has been approved for 21/09 caregivers through the [employer] Waiver Program. Only period of time patient does not have caregivers at this time is from 6pm-10pm nightly. The patient has been to [facility]
in the past. The patient's pharmacy of choice is [facility]. CM continues to be available to patient/family and is monitoring medical plan for needs at discharge.
Plan: Discharge back to home with resumption of caregivers through [employer].
[2024-05-16] MEDS: DILAUDID 0.5 MG IV ×2 (18:37→22:45)
[2024-05-16] MEDS: ROCEPHIN 1000 MG IV (21:37)
[2024-05-16] MEDS: STERILE WATER FOR INJECTION 10 ML IV (21:38)
--- NOTE | 2024-05-16 23:13 | PTCARENOTE ---
Pt. unable to void at change of shift tonight; abd. distended & pt. very uncomfortable, bladder scanned for [address] Jansen notified via telephone, ordered obtained to place Mabry catheter overnight only (remove at 0600 05/17 for voiding
trial). 16 F latex free Mabry inserted without difficulty, initially drained 700 ml stefano urine, pt. expressed much relief. Currently resting quietly.
[2024-05-17] MEDS: TYLENOL 650 MG PO (01:30)
[2024-05-17] MEDS: DILAUDID 0.5 MG IV ×2 (02:50→13:20)
[2024-05-17 03:00] VITALS: BP 111/63
--- NOTE | 2024-05-17 04:32 | DOWNTIME ---
There was a [employer] System Dispatcher Downtime on 05/17/2024 from 0100 to 05/18/2023 at 0420 . Downtime documentation of patient's care, including medication administrations, has been reconciled in the electronic record per guidelines. Refer to the
patient's paper chart under the miscellaneous tab to see printed paper medication records and downtime forms.
[2024-05-17] MEDS: NSS 1000 IV (06:06)
--- NOTE | 2024-05-17 06:32 | PTCARENOTE ---
Mabry drained 1 liter cloudy stefano urine with some mucus/sediment, no stones seen when strained. Dc'd this AM as per order.
[2024-05-17 08:04] VITALS: BP 104/66
[2024-05-17] MEDS: REGLAN 10 MG PO (08:25)
[2024-05-17] MEDS: VITAMIN D3 (cholecalciferol) 25 MCG PO (08:25)
[2024-05-17] MEDS: AMITIZA 24 MCG PO (08:25)
[2024-05-17] MEDS: COLACE 200 MG PO (08:25)
[2024-05-17] MEDS: TRILEPTAL 300 MG PO (08:25)
[2024-05-17] MEDS: MUCINEX 1200 MG PO (08:25)
[2024-05-17 08:26] LABS: Hematocrit 42.5 % (39.0-52.0); Hemoglobin 13.5 g/dL (13.0-18.0); Mean Corp Hgb Conc. 31.8 g/dL (33.0-37.0); Mean Corpuscular Hgb 27.3 pg (27.0-31.0); Mean Corpuscular Volume 85.9 fL (80.0-94.0); Mean Platelet Volume 9.5 fL (7.4-10.4); Platelet Count 208 10^3/uL (130-400); Red Blood Cell Count 4.95 10^6/uL (4.70-6.10); Red Cell Dist. Width 15.6 % (11.5-14.5); White Blood Cell Count 7.6 10^3/uL (4.8-10.8)
[2024-05-17] MEDS: NON-FORMULARY ITEM 137 MG PO (08:28)
[2024-05-17] MEDS: NON-FORMULARY ITEM 200 MG PO (08:29)
[2024-05-17] MEDS: NON-FORMULARY ITEM 40 UNIT PO (08:31)
[2024-05-17] MEDS: NON-FORMULARY ITEM 1 CAP PO (08:32)
--- NOTE | 2024-05-17 09:00 | W.PN.URO.CBU ---
Today's Communication / Plan
-
Trial of void
Continue abx
Discharge today
Assessment / Plan
-
33M with complex medical history, CP
Recent ESWL for L renal stone approx 3 weeks ago at [facility] [place] [facility]
Presenting with R flank pain from obstructing 6x4mm prox ureteral stone
Stone debris in L kidney and calcific debris vs early contrast excretion in L proximal ureter without hydronephrosis
Leukocytosis and pyuria without sepsis
- Recent ESWL was done for preventive treatment of larger nonobstructing L renal stone. Given that this stone still remains 7mm, he will need eventual bilateral ureteroscopy to accomplish the original goal of clearing kidneys of stones that could
cause obstruction. For this reason I recommended bilateral stent placement to facilitate later ureteroscopy
- s/p b/l stent placement 05/16, uncomplicated
Urinary retention
- Straight cath multiple times pre and post op for volumes 400-700cc
- Likely some chronic retention but was only symptomatic last night
- Trial of void today - if unable to void then start CIC TID (mother is a nurse and capable)
Stable for discharge today
Continue 7 day total course of PO antibiotics for possible UTI
Outpatient follow up with his urologist Dr. [place] for final stone management
Diagnosis
-
Date of Service: May 17, 2024
-
Patient Diagnosis:
R ureteral stone
L ureter/kidney stones and debriis
Urinary retention
s/p b/l stent placement 05/16
Post Op Day:
Subjective
-
pain overnight
retention req continued peralta/cic
peralta removed this AM
Objective
-
Vital Signs
Temp Pulse Resp BP Pulse Ox
98.1 F 107 17 104/66 95
05/17/24 08:04 05/17/24 08:04 05/17/24 08:04 05/17/24 08:04 05/17/24 08:04
Intake and Output
05/16/24 05/17/24 05/18/24
06:59 06:59 06:59
Intake Total 2230 / 2230
Output Total 700 / 700 1300 / 1300
Balance -700 / -700 930 / 930
Intake:
Oral fluids 480 / 480
IV fluids (Total) 1750 / 1750
normosol 250 / 250
Output:
Urine, Peralta 1000 / 1000
Urine, Voided 300 / 300
Straight cath output 700 / 700
Other:
How many times incontinent 1
How many times incontinent 1
MODERATE amount urine
Number of unmeasured liquid
stools
Rectum 1 1
Laboratory Results
05/17/24 07:57
Physical Exam
-
General - well developed, well nourished, no acute distress
Chest - clear bilaterally
[2024-05-17 09:01] LABS: ALT (SGPT) 23 U/L (0-50); AST (SGOT) 15 U/L (17-59); Albumin 3.7 g/dl (3.5-5.0); Alkaline Phosphatase 62 U/L (38-126); Blood Urea Nitrogen 10 mg/dl (9-20); Calcium 8.6 mg/dl (8.4-10.2); Carbon Dioxide 23 mmol/L (22-30); Chloride 108 mmol/L (98-107); Estimated Creatinine Clearance > 125 ml/min; Glucose 117 mg/dl (70-99); Potassium 3.7 mmol/L (3.5-5.1); Sodium 141 mmol/L (135-145); Total Bilirubin 0.4 mg/dl (0.2-1.3); eGFR > 60.00
--- NOTE | 2024-05-17 10:49 | W.PN.HOSP.TC ---
Today's Communication/Plan
-
* Voiding trial.
* Likely discharge today.
Assessment / Plan
Assessment / Plan
The patient is a 33-year-old male with a past medical history of cerebral palsy, GJ tube, multiple kidney stones who was brought to the ER department by his mother due to concern of right flank pain. Patient does not have capacity to answer the
questions. His mother reported that he had right flank pain pointing the area and having some chills. At the ER, the patient's CT reported obstructing calculus in the proximal right ureter, at the L3 level and bilateral nephrolithiasis with mild
hydronephrosis and 2 mm calculus within the left posterior bladder. His urine result found complaint with UTI and his WBC was found elevated to 12.9. The patient also had a small amount of urine output and required catheter to remove urine after
admission.
Off note, The patient had lithotripsy on the left kidney about 3 weeks ago and mother reports capturing 4 pieces of stone pieces in the urine.
#Right proximal ureteral stone with mild hydronephrosis and possible UTI infection
-Was seen by urology; removal and stent placed yesterday
-Continue straight cath as needed for now-
-Trend PVR/bladder scan by urology recc
-Continue IV fluids
-Continue tamsulosin
-Voiding trial today.
# Leukocytosis secondary to UTI
-Resolved
-Continue ceftriaxone
-Urine culture pending
# Chronic hypoxia
-Patient has been on supplemental oxygen he has medical deconditioning
-History of asthma
-Inhalers as needed
-Pain management
-Chest x-ray: Unremarkable
-
# Cerebral palsy complicated with seizures
-Baseline bedbound
-Continue his usual antiseizure medication (Clobazam, Lamictal, Oxcarbazepine)
-
# Chronic anemia
-Continue ferrous sulfate
# GJ tube
-Continue giving fluids and meds through tube
# Constipation
-Continue Colace and enema and MiraLAX
#DVT prophylaxis
-SCDs
# CODE STATUS
-Full code
Anticipated Discharge: Today
Subjective/Interval History
-
Date of Service: May 17, 2024
Stable overnight.
Objective Data
-
Labs:
Laboratory Results
05/17/24
07:57
WBC 7.6
Hgb 13.5
Hct 42.5
Plt Count 208
Sodium 141
Potassium 3.7
Chloride 108 H
Carbon Dioxide 23
BUN 10
Creatinine 0.6 L
Glucose 117 H
Calcium 8.6
Total Bilirubin 0.4
AST 15 L
ALT 23
Alkaline Phosphatase 62
Vital Signs:
Vital Signs
Temp Pulse Resp BP Pulse Ox
98.1 F 107 17 104/66 95
05/17/24 08:04 05/17/24 08:04 05/17/24 08:04 05/17/24 08:04 05/17/24 08:04
I&O
05/16/24 05/17/24 05/18/24
06:59 06:59 06:59
Intake Total 2230 / 2230
Output Total 700 / 700 1300 / 1300
Balance -700 / -700 930 / 930
Review of Systems
-
History Source: Patient and Family
All other systems: Reviewed and negative
Physical Exam
-
General: Well Developed, Well Nourished and Pain
HEENT: Normocephalic and Atraumatic
Respiratory: Clear to Auscultation
Cardiac: Regular Rhythm and S1/S2
GI: Soft, Nontender, Nondistended and Other (GJ tube seems on the place)
Genito-urinary: Costovertebral Angle Tend (On the right side)
Musculoskeletal: No Clubbing, No Cyanosis and Other (bedridden-only moves upper extremities)
Skin: Warm
Neuro: Awake, Alert and Other (see HPI )
--- NOTE | 2024-05-17 14:15 | CM ---
Reviewed the chart notes. Patient being discharged to home. CM continues to be available to patient/family and is monitoring medical plan for needs at discharge.
Plan: Discharge to home with resumption of caregivers through [employer].
[facility]
Medical necessity and transport forms on chart.
--- NOTE | 2024-05-17 14:57 | W.DCSUMMARY ---
Documented by User: Dylan Ward MD, Resident 05/17/24 16:10
Discharge Summary
Discharge Data
Date of Admission: 05/15/24
Date of Discharge: 05/17/24
-
Pending Results: No
Hospital Course
Primary discharge diagnosis
* Right-sided ureterolithiasis
* Acute urinary tract infection
* Nephrolithiasis
* Hydronephrosis
Secondary discharge diagnoses
- Cerebral palsy
- Developmental delay
- Seizure disorder
- Iron deficiency anemia
- Chronic constipation
- Mild intermittent asthma
- Status GJ tube
- GERD
Hospital course
Salvatore Feldman, 33-year-old male, presented to the emergency on 05-15-24 with right flank pain. Imaging demonstrated an obstructing ureteral stone, and lab work was concerning for a urinary tract infection. He was admitted with IV antibiotics,
fluids and was made NPO. He underwent a cystoscopy, retrograde pyelograms and bilateral ureteral stent placement. Tolerated the procedure well and did well post-operatively. Vitals remained stable throughout the admission, and he remained afebrile.
Pain was appropriately controlled, and he had no medical complaints. He will be discharged home to complete a course of antibiotics and with analgesics. Follow-up with primary in under 1 week and urology.
Discharge Plan
-
Patient Disposition: Home with Home Care
Discharge Diagnosis/Procedures: Right proximal ureteral stone with mild hydronephrosis and possible UTI infection
Condition: Good
Diet: As tolerated
Activity: With assistance and As tolerated
Driving Restrictions: No driving
Other Services: VN, PT and OT
Referrals:
Jesica Solano DO [Family Provider] - in less than 1 week
Igor Vivar MD [Active] - in one to two weeks
Prescriptions:
New
cefdinir 300 mg capsule
300 mg PO Q12H 3 Days Qty: 6 0RF
phenazopyridine 200 mg tablet
200 mg PO TID 2 Days Qty: 6 0RF
oxycodone 5 mg capsule
5 mg PO Q8H PRN (Reason: moderate pain) 5 Days Qty: 14 0RF
oxycodone 10 mg tablet
10 mg PO Q8H PRN (Reason: Severe Pain) 5 Days Qty: 14 0RF
Continued
polyethylene glycol 3350 17 GRAMS powder in packet
17 grams PO DAILYPRN PRN (Reason: constipation)
fluticasone propionate 1 SPRAY spray,suspension
1 spray intranasal BIDPRN PRN (Reason: allergies)
loratadine 10 MG tablet
10 mg PO HS
lubiprostone 24 MCG capsule
24 mcg PO BID
Enema 135 ML enema
135 ml [place] NOON
montelukast 10 MG tablet
10 mg PO HS
lamotrigine [Lamictal] 150 mg Tablet
150 mg PO DAILY@1600
Patient Comments:
05/15/24: Brand necessary, brought own medication
lamotrigine [Lamictal] 200 mg Tablet
200 mg PO BID
Patient Comments:
05/15/24: Brand necessary, brought own medication
ketotifen fumarate 0.025 % (0.035 %) Drops
1 drp BOTH EYES Q8HPRN PRN (Reason: eye irritation)
therapeutic multivitamin Tablet
1 tab PO DAILY
oxcarbazepine 300 mg Tablet
300 mg PO DAILY
oxcarbazepine 300 mg Tablet
450 mg PO HS
omeprazole 40 mg Capsule,Delayed Release(Dr/Ec)
40 mg PO DAILY
clindamycin phosphate 1 % gel
1 applic TOPICAL DAILYPRN PRN (Reason: pimples)
tamsulosin 0.4 mg Capsule
0.4 mg PO DAILY@1600
docusate sodium 100 mg Capsule
200 mg PO BID
metoclopramide HCl 10 mg Tablet
10 mg PO TID
cholecalciferol (vitamin D3) [Vitamin D3] 25 mcg (1,000 unit) Tablet
25 mcg PO DAILY
guaifenesin 1,200 mg Tablet Extended Release 12hr
1,200 mg PO BID
omega 0-gij-hju-fish oil [Fish Oil] 1,000 (120-180) mg Capsule
1 cap PO BID
clobazam 20 mg Tablet
40 mg PO HS
ferrous sulfate 137 mg (45 mg iron) Tablet Extended Release
137 mg PO BID
Discharge Orders:
Discharge Patient (As Directed); Ordered 05/17/24
Ordered By: Dylan Ward
Discharge Date and Time
Discharge Date/Time: 05/17/24 17:55
Print Language: SINHALA

Documented by User: Mark Anthony Jin DO 05/18/24 10:39
Discharge Summary
Discharge Data
Date of Admission: 05/15/24
Date of Discharge: 05/18/24
Total time spent discharging patient (in min): 40
Discharge Plan
-
Patient Disposition: Home with Home Care
Discharge Diagnosis/Procedures: Right proximal ureteral stone with mild hydronephrosis and possible UTI infection
Condition: Good
Diet: As tolerated
Activity: With assistance and As tolerated
Driving Restrictions: No driving
Other Services: VN, PT and OT
Referrals:
Jesica Solano DO [Family Provider] - in less than 1 week
Igor Vivar MD [Active] - in one to two weeks
Prescriptions:
New
cefdinir 300 mg capsule
300 mg PO Q12H 3 Days Qty: 6 0RF
phenazopyridine 200 mg tablet
200 mg PO TID 2 Days Qty: 6 0RF
oxycodone 5 mg capsule
5 mg PO Q8H PRN (Reason: moderate pain) 5 Days Qty: 14 0RF
oxycodone 10 mg tablet
10 mg PO Q8H PRN (Reason: Severe Pain) 5 Days Qty: 14 0RF
Continued
polyethylene glycol 3350 17 GRAMS powder in packet
17 grams PO DAILYPRN PRN (Reason: constipation)
fluticasone propionate 1 SPRAY spray,suspension
1 spray intranasal BIDPRN PRN (Reason: allergies)
loratadine 10 MG tablet
10 mg PO HS
lubiprostone 24 MCG capsule
24 mcg PO BID
Enema 135 ML enema
135 ml [place] NOON
montelukast 10 MG tablet
10 mg PO HS
lamotrigine [Lamictal] 150 mg Tablet
150 mg PO DAILY@1600
Patient Comments:
05/15/24: Brand necessary, brought own medication
lamotrigine [Lamictal] 200 mg Tablet
200 mg PO BID
Patient Comments:
05/15/24: Brand necessary, brought own medication
ketotifen fumarate 0.025 % (0.035 %) Drops
1 drp BOTH EYES Q8HPRN PRN (Reason: eye irritation)
therapeutic multivitamin Tablet
1 tab PO DAILY
oxcarbazepine 300 mg Tablet
300 mg PO DAILY
oxcarbazepine 300 mg Tablet
450 mg PO HS
omeprazole 40 mg Capsule,Delayed Release(Dr/Ec)
40 mg PO DAILY
clindamycin phosphate 1 % gel
1 applic TOPICAL DAILYPRN PRN (Reason: pimples)
tamsulosin 0.4 mg Capsule
0.4 mg PO DAILY@1600
docusate sodium 100 mg Capsule
200 mg PO BID
metoclopramide HCl 10 mg Tablet
10 mg PO TID
cholecalciferol (vitamin D3) [Vitamin D3] 25 mcg (1,000 unit) Tablet
25 mcg PO DAILY
guaifenesin 1,200 mg Tablet Extended Release 12hr
1,200 mg PO BID
omega 8-iys-msa-fish oil [Fish Oil] 1,000 (120-180) mg Capsule
1 cap PO BID
clobazam 20 mg Tablet
40 mg PO HS
ferrous sulfate 137 mg (45 mg iron) Tablet Extended Release
137 mg PO BID
Discharge Orders:
Discharge Patient (As Directed); Ordered 05/17/24
Ordered By: Dylan Ward
Discharge Date and Time
Discharge Date/Time: 05/17/24 17:55
Print Language: SINHALA
[2024-05-17 15:46] VITALS: BP 104/67
--- NOTE | 2024-05-17 17:35 | PTCARENOTE ---
Pt with discharge order and transport leaf size picker time for 194. Family's caregiver came in at 17:45 with wheelchair from home, dressed patient, and stated that the leaf size picker time was too late. Assistance offered to help with getting patient ready to
leave. Belongings from room taken with patient. All meds from med cart and pharmacy given to mother. Resident doctor in prior to discharge to discuss with patient's mothers concerns about prescribed medications.
[2024-05-17 17:40] VITALS: BP 108/72
== END 2024-05-17 17:55 | disposition home health service (06) | DRG 661 ==
LOC: 2 NORTH 22:11
PROVIDERS: Physician Assistant; Registered Nurse; Specialist; Student in an Organized Health Care Education/Training Program; ADMITTING PHYSICIAN Internal Medicine; ATTENDING PHYSICIAN Internal Medicine; EMERGENCY PHYSICIAN Emergency Medicine; FAMILY PHYSICIAN Family Medicine; OTHER PHYSICIAN Urology
PROC: BT141ZZ Fluoroscopy of Kidneys, Ureters and Bladder using Low Osmolar Contrast (ICD-10-PCS; 2024-05-16)
PROC: 0T788DZ Dilation of Bilateral Ureters with Intraluminal Device, Via Natural or Artificial Opening Endoscopic (ICD-10-PCS; 2024-05-16)
DX: N13.6 Pyonephrosis (principal); G40.909 Epilepsy, unspecified, not intractable, without status epilepticus; D50.9 Iron deficiency anemia, unspecified; K21.9 Gastro-esophageal reflux disease without esophagitis; G80.8 Other cerebral palsy; K59.09 Other constipation; J45.20 Mild intermittent asthma, uncomplicated; Z87.442 Personal history of urinary calculi; Z74.01 Bed confinement status
CPT/HCPCS: 51701; 51798; 71046; 74177; 74420; 76000; 80048; 80053; 81003; 81015; 83690; 85025; 85027; 87086; 96361; 96374; 96375; 99285; C1758; C1894; C2617; Q9967

== ENCOUNTER → 2025-02-07 10:44 | Outpatient (REF) | payer MEDICARE, OTHER, SELFPAY | LOC: HWRAD 10:44 | PROVIDERS: ATTENDING PHYSICIAN Urology; FAMILY PHYSICIAN Family Medicine | DX: N13.2 Hydronephrosis with renal and ureteral calculous obstruction (principal) | CPT/HCPCS: 76775 ==